=== PATIENT | male | born 1940 | race Two or more races ===

== ENCOUNTER 2018-06-22 18:29 | Emergency (ER) | payer MEDICARE ==
[~2018-06-22] VITALS: Ht 175.3 cm; Wt 86.2 kg
[2018-06-22] MEDS ORDERED: LIPITOR40 MG PO (19:06)
[2018-06-22] MEDS ORDERED: BLOOD PRESSURE (19:07)
[2018-06-22] MEDS ORDERED: PROVENTIL HFA6.7 GM INH (20:42)
[2018-06-22] MEDS ORDERED: ZITHROMAX250 MG PO (20:42)
== END 2018-06-22 20:50 | disposition home or self-care (01) ==
LOC: ED 18:29
DX: J20.9 Acute bronchitis, unspecified (principal); I10 Essential (primary) hypertension; E78.5 Hyperlipidemia, unspecified; Z87.891 Personal history of nicotine dependence; Z79.899 Other long term (current) drug therapy
CPT/HCPCS: 87502; 99283

== ENCOUNTER 2022-12-29 07:40 | Inpatient (IN) | payer MEDICARE ==
[~2022-12-29] VITALS: Ht 175.3 cm; Wt 94.0 kg
--- OUTSIDE RECORDS SUMMARY | ~2022-12-29 | XMS | Continuity of Care Document ---
Demographics + + + | Address | [address] | | | [place] [address] | + + + | Preferred Language | Unknown | + + + | Marital Status | | + + + | Jainism Affiliation | Unknown | + + + | Race | Unknown | + + + | Ethnic Group | Unknown | + + + Author + + + | Author | [place] | + + + | Organization | [place] | + + + | Address | [address] [facility] [address] | | | [place] [address] | + + + | Phone | | + + + Care Team Providers + + + + | Care Training And Development Officer Name | Role | Phone | + + + + Unavailable | Unavailable | + + + + Allergies and Intolerances + + + + + + | date | description | facility | reaction | severity | + + + + + + | (no date) | No Known | [facility] | (no reaction) | (no severity) | | | Allergies | | | | + + + + + + Encounters No information. Functional Status No information. Immunizations No information. Medications No information. Problems No information. Procedures No information. Results/Labs No information. Social History No information. Vital Signs No information."
[~2022-12-29 07:40] MED LIST: BLOOD PRESSURE; LIPITOR40 MG PO; PROVENTIL HFA6.7 GM INH; ZITHROMAX250 MG PO
[2022-12-29] MEDS ORDERED: LISINOPRIL-HCT1 EAC1 PO (07:59)
[2022-12-29] MEDS ORDERED: SIMVASTATIN40 MG PO (07:59)
[2022-12-29] MEDS ORDERED: FLUTICASONE PRO16 GM NAS (08:00)
[2022-12-29 08:07] LABS: HEMOGLOBIN 14.6 g/dL (12.0-18.0); MCHC 32.4 g/dl (30-36)
[2022-12-29 08:11] LABS: HEMATOCRIT 45.1 % (35.0-50.0); MCH 29.4 (27-36); MCV 90.9 fl (81-99); PLATELET COUNT 250 K/uL (140-440); RBC 4.97 M/ul (4.3-5.7); RDW 12.8 (10.5-15.0)
[2022-12-29 08:18] LABS: ALBUMIN 3.8 g/dL (3.4-5.0); ALBUMIN/GLOBULIN RATIO 0.97 (1.1-2.4); ANION GAP 14.6 (7-21); BILIRUBIN, TOTAL 1.2 ng/dL (0.2-1.0); BUN/CREATININE RATIO 21.76 (6.0-28.6); CALCIUM 10.1 mg/dL (8.5-10.1); CREATININE, SERUM 1.47 mg/dL (0.70-1.30); POTASSIUM 3.6 mmol/L (3.5-5.1); PROTEIN, TOTAL 7.7 g/dL (6.4-8.2)
[2022-12-29 08:28] LABS: LYMPHOCYTES, MANUAL DIFF 3; MONOCYTES, MANUAL DIFF 2; NEUTROPHILS, MANUAL DIFF 95
[2022-12-29 09:42] LABS: BILIRUBIN, URINE NEGATIVE (negative); BLOOD/HGB, URINE SMALL (Negative); KETONE, URINE NEGATIVE (Negative); LEUK ESTERASE, URINE NEGATIVE (negative); NITRITE, URINE NEGATIVE (negative); PH, URINE 5.5 (5-7)
[2022-12-29 09:47] LABS: BACTERIA, URINE NONE SEEN /hpf (negative); CASTS, URINE NONE SEEN \\lpf; COLLECTION TYPE, URINE CLEAN CATCH; CRYSTALS, URINE NONE SEEN (0-1+); EPITHELIAL CELLS, URINE 0 /lpf (0-1+); REFLEX CULTURE, URINE No (No); WHITE BLOOD CELLS, URINE 0-1 /HPF (0-5)
--- NOTE | 2022-12-29 11:31 | NUR ---
Patient has had surgical wipe down done.
[2022-12-29 11:44] VITALS: BP 153/85
--- NOTE | 2022-12-29 12:02 | NUR ---
PATIENT TAKEN DOWN TO SURGERY.
--- NOTE | 2022-12-29 12:13 | EKG ---
[facility] [address] [facility] [place] [address] Signed Sinus rhythm with premature supraventricular complexes Left anterior fascicular block Left ventricular hypertrophy with QRS widening ( R in aVL , Brennen product ) Abnormal ECG No previous ECGs available Confirmed by MILLI QUINTERO MD ([id number]) on 12/29/2022 12:13:34 PM Electronically Signed By: MILLI QUINTERO 12/29/22 1213 PATIENT NAME: NILSA REIDO Electrocardiogram DATE OF : 40 PHYSICIAN: MILLI QUINTERO REPORT #: [id number] REPORT IS CONFIDENTIAL AND NOT TO BE RELEASED WITHOUT AUTHORIZATION
[2022-12-29] MEDS ORDERED: DICLOFENAC POTA50 MG PO (12:16)
[2022-12-29] MEDS ORDERED: MULTI VITAMIN1 EACH PO (12:17)
[2022-12-29] MEDS ORDERED: ADULT LOW DOSE81 MG PO (12:17)
--- NOTE | 2022-12-29 12:17 | NUR ---
MED REC COMPLETE
--- NOTE | 2022-12-29 12:32 | NUR ---
OVER TO SEE PATIENT, PATIENT CURRENTLY IN OR.
--- NOTE | 2022-12-29 12:49 | CONS ---
[facility] [address] [place], [place] [address] Signed DATE OF CONSULTATION: 12/29/2022 CHIEF COMPLAINT: Right lower quadrant abdominal pain. HISTORY OF PRESENT ILLNESS: Donavan is an 82-year-old gentleman originally from [place]. 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 He woke this morning at around 4:00 a.m. and was having lower abdominal pain. He had nausea, chills, sweating and decided to come the emergency room for evaluation. He last ate yesterday around 8:00 p.m. Here in the emergency room, he is tender in the lower abdomen. White count was elevated. CT scan of abdomen and pelvis shows the 12 mm appendicolith with periappendiceal inflammation. He may have a 5 cm length of thickened mid right colon on the CT scan. It could be from contractions. He told me that his last colonoscopy came around age 72 back in 2012 or 2013 at [facility] in [place], [place]. Apparently, the bowel got perforated and he had to have a lower midline incision to repair the bowel. He spent about a week in the hospital. I was asked to come and see him as a local general surgeon on-call. His is with him. PAST MEDICAL HISTORY: Hypertension, hyperlipidemia, osteoarthritis, and obesity. PAST SURGICAL HISTORY: Repair of a colon perforation from colonoscopy around 2012 or 2013 at the age of 72 at [facility] in [place], [place]. SOCIAL HISTORY: He does not smoke or drink. He is to Hailey at [phone]. Sriram Parker is his primary care provider. He prefers the [facility] pharmacy. 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 FAMILY HISTORY: He has not seen his family since the 1960s when he left [place]. REVIEW OF SYSTEMS: He had 10 systems reviewed and he talked to me about the colon perforation and apparently has no history of colon polyps. He has declined colonoscopy since that time. ALLERGIES: None. MEDICATIONS: 1. Lisinopril 20 mg p.o. daily. Electronically Signed By: ALEX BRANDON MD 12/29/22 1249 PATIENT NAME: DONAVAN REID CONSULTATION DATE OF : 40 REPORT #: [id number] PHYSICIAN: ALEX BRANDON MD PCP: SRIRAM PARKER PAC REPORT IS CONFIDENTIAL AND NOT TO BE RELEASED WITHOUT AUTHORIZATION [facility] [address], [place] [address] Signed 2. Hydrochlorothiazide 25 mg p.o. daily. 3. Simvastatin 40 mg p.o. at bedtime. 4. Fluticasone one spray each nostril daily. PHYSICAL EXAMINATION: VITAL SIGNS: His blood pressure is 124/83, heart rate 107, respiratory rate 18, temperature is 97.1, he is 98% on room air. He is 5 feet 9 inches at 94 kg. Body mass index is 30. GENERAL: Donavan is an 82-year-old gentleman, lying supine in his hospital bed, watching TV. His is in the room. He has good muscle mass and overall seems to have good functional status. He does not appear systemically ill or toxic. LUNGS: Clear to auscultation bilaterally. HEART: Regular rate and rhythm without murmurs. ABDOMEN: Moderately to significantly protuberant, but soft. He seems to have some mild tenderness deep in the right lower quadrant. LABORATORY DATA: His white blood cell count is 16, hemoglobin 14, neutrophils 95. BUN 32, creatinine 1.4. Liver function tests negative. Albumin is 3.8. EKG shows normal sinus rhythm. RADIOGRAPHIC STUDIES: CT scan of abdomen and pelvis is reviewed along with the report and the images. There appears to be a 12 mm appendicolith and some periappendiceal inflammation. He may have a 5 cm segment of slightly thickened mid right colon. ASSESSMENT AND PLAN: Donavan is an 82-year-old gentleman, who presents with what appears to be classic acute appendicitis. I reviewed with him the location and function of the appendix. We reviewed the above findings. We have reviewed laparoscopic versus open appendectomy. We have discussed the expected intraop and postop course. There is risk including, but not limited to bleeding, infection, scarring, change in contour of the skin, damage to bowel, appendiceal stump leak, postoperative intra-abdominal abscess incisional hernias and other unforeseen comorbidities. He and his have expressed understanding and would like to proceed. Alex Brandon MD ALB/MODL /[id number] Electronically Signed By: ALEX BRANDON MD 12/29/22 1249 PATIENT NAME: DONAVAN REID CONSULTATION DATE OF : 40 REPORT #: [id number] PHYSICIAN: ALEX BRANDON MD PCP: SRIRAM PARKER REPORT IS CONFIDENTIAL AND NOT TO BE RELEASED WITHOUT AUTHORIZATION [facility] [address] [place], [place] [address] Signed cc: KENDRA Avalos MD Copies: SRIRAM PARKER ANDREW L MD ~ Electronically Signed By: ALEX BRANDON MD 12/29/22 1249 PATIENT NAME: DONAVAN REID CONSULTATION DATE OF : 40 REPORT #: [id number] PHYSICIAN: ALEX BRANDON MD PCP: SRIRAM PARKER REPORT IS CONFIDENTIAL AND NOT TO BE RELEASED WITHOUT AUTHORIZATION
--- NOTE | 2022-12-29 13:00 | NUR ---
RECIEVED HAND OFF REPORT FROM JHONY FLORES. PT REMAINS IN SURGERY AT THIS TIME.
[2022-12-29 16:22] VITALS: BP 123/79
--- NOTE | 2022-12-29 16:25 | NUR ---
12/29/22 1625 Keira Thomson 1535- PT ARRIVED TO PACU, SEMI CAVANAUGH POSITION WITH LR INFUSING TO IV LAC. O2 AT 6L PER MASK, ALL MONITORS APPLIED. PT EYES OPEN BUT DROWSY, RESPONSIVE TO STIMULI. DENIES PAIN OR NAUSEA. 1539- O2 REMOVED AT THIS TIME, WILL CONTINUE TO MONITOR. 1545- PT RESTING INTERMITTENTLY. CONTINUES TO HAVE NO COMPLAINTS. 1600- PT REMAINS STABLE ON ROOM AIR, VITAL SIGNS WITHIN NORMAL LIMITS. NO SIGNS OF DISTRESS. PT TO GO TO MED/SURG. LR HANGING.
--- NOTE | 2022-12-29 16:30 | NUR ---
PATIENT RETURNS FROM PACU AT 1615. POST OP VITALS COMPLETE. PT IS ALERT, ORIENTED, AND IN GOOD SPIRITS. PT DENES PAIN AT THIS TIME. ABDOMINAL INCISION MIDLINE IS C/D/I W/O ANY DRAINAGE NOTED AT THIS TIME. LAP SIDE RIGHT SIDE OF ABD ALSO C/D/I. SCDs ON. IVF STARTED AT 100 ML/HR. PT'S AND DAUGHTER IN ROOM. RT IN ROOM AND CONT PULSE OX STARTED. PT USING IS. NEXT POST OP VITALS AT 1715.
--- NOTE | 2022-12-29 16:49 | OR ---
[facility] [address] [place], [place] [address] Signed DATE OF OPERATION: 12/29/2022 SURGEON: Alex Brandon MD PREOPERATIVE DIAGNOSIS: Acute appendicitis. POSTOPERATIVE DIAGNOSIS: Acute necrotic appendicitis. PROCEDURE: Laparoscopic converted to open appendectomy. ESTIMATED BLOOD LOSS: None. FINDINGS: Cuco had adhesions of the cecum and mid right colon from a previous laparotomy. His appendix was lying on the retroperitoneum over the area of the iliac artery and vein near the aorta. He had acute on chronic inflammation and chronic adhesions. The distal one-half of his appendix was black and necrotic. We therefore had to convert from a laparoscopic to an open appendectomy for technical reasons and for safety. INDICATIONS: Cuco is an 82-year-old gentleman originally from [place]. He came to the [facility] in the 1960s. 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 He woke this morning at 4:00 a.m. and he was having lower abdominal pain. He had nausea, chills and was sweating. He came to the emergency room for evaluation. He was tender in the lower abdomen with an elevated white blood cell count. A CT scan showed his appendix traveling transversely across the area of iliac artery and vein just below the bifurcation of the aorta. He appears to have an appendicolith. There was also some concern about a 5 cm segment of thickened mid right colon. He told me that he had a colonoscopy at age 72 at [facility] in [place], [place]. He told me the bowel had been perforated and he had to have a laparotomy to repair the bowel. He has been about a week in the hospital. I met with Cuco and his in the ER. We had reviewed the above findings. I reviewed with him the location and function of the appendix. We discussed laparoscopic versus open appendectomy. I expressed my concern about the location of his appendix on the CT scan. He understands we have a 3% conversion rate from laparoscopic to open cases. He understands the expected intraop and postop course. We did review the risk including, but not limited to bleeding, infection, scarring, change in contour of the Electronically Signed By: ALEX BRANDON MD 12/29/22 1649 PATIENT NAME: ODNAVAN REID OPERATIVE REPORT DATE OF : 40 REPORT #: [id number] PHYSICIAN: ALEX BRANDON MD PCP: RADHA PARKER PAC REPORT IS CONFIDENTIAL AND NOT TO BE RELEASED WITHOUT AUTHORIZATION [facility] [address] [place] [address] Signed skin, damage to bowel, appendiceal stump leak, postoperative intra-abdominal abscess, incisional hernias and other unforeseen comorbidities. He had expressed understanding and wished to proceed. DESCRIPTION OF PROCEDURE: Cuco was taken into the operating room and placed in the supine position under general endotracheal tube anesthesia. He was given preoperative antibiotics with Rocephin and Flagyl. He was given preoperative Lovenox. SCDs were utilized. A Avila catheter was inserted with return of clear yellow urine. He was then prepped and draped in usual sterile fashion. We placed our Halle trocar just above the umbilicus without difficulty. We placed our suprapubic 5 mm trocar as well as the right subcostal 12 mm trocar at the trocar site. We found that his cecum was adherent in the retroperitoneum. We took down some adhesions on the cecum up through the mid right colon. We realized that as we rotated the cecum that his appendix was also densely adherent to the retroperitoneum. There were several loops of small bowel adherent to this as well. We simply could not proceed safely with our laparoscopic instruments. At that point, we converted to an open procedure. All the gas was allowed to escape and the trocars were removed. We had closed the right subcostal trocar site with an 0 Vicryl suture with our laparoscopic suturing device. We simply extended our supraumbilical incision down and around the umbilicus to follow his old laparotomy scar. There were just a few adhesions underneath the umbilicus easily taken down with the cautery. We had an extra nurse scrub in to help hold retractors. It took just a few minutes then to isolate the cecum and his appendix. He had a tiny 3 mm serosal area on the cecum that we inverted and oversewed with a 3-0 Vicryl suture in a nevqjf-qg-vgfoe fashion. We had divided off the base of the appendix with the cautery in between Peon clamps, it was divided and secured with 0 Vicryl reel. The appendiceal stump was gently cauterized. It took just a little cautery under direct visualization to bring the appendix up off the retroperitoneum. We used a single clip near the tip of the appendix. After that, we had enough room then to come across the mesoappendix with Peon camp right next to his appendix. The appendix was with the help of the Metzenbaum scissors and passed off the field. The proximal half was unremarkable. The distal half was quite swollen, black and necrotic. No obvious abscess cavity. He certainly had chronic adhesions from his previous laparotomy in this area. He also had some acute inflammatory changes. We then used an 0 Vicryl reel to secure the mesoappendix. Hemostasis was excellent. The area was then irrigated and suctioned out until clear. There was no abscess cavity, so we did not place a drain. We allowed the cecum and small bowel to return to its position. The omentum was brought back down over the area. We closed the midline fascia with interrupted cheowk-nv-fctvb #1 PDS sutures. Local anesthetic was injected into his abdominal wall. The wound was irrigated and suctioned out until clear. We closed the dermis with interrupted 3-0 subcuticular and Monocryl sutures. The skin edges were reapproximated with harlan. After this, Electronically Signed By: ALEX BRANDON MD 12/29/22 1649 PATIENT NAME: DONAVAN REID OPERATIVE REPORT DATE OF : 40 REPORT #: [id number] PHYSICIAN: ALEX BRANDON MD PCP: RADHA PARKER REPORT IS CONFIDENTIAL AND NOT TO BE RELEASED WITHOUT AUTHORIZATION [address] [address] Signed bilateral TAP blocks were placed under ultrasound guidance by our nurse train examiner. A Avila catheter was then removed without difficulty. Cuco was awakened from his anesthesia, extubated in the OR, and taken to recovery room in stable condition. MD MANJEET Marr/MATT /[id number] cc: MD Radha Marr PA-C Copies: ALEX BRANDON MD, ERIKA PAC ~ Electronically Signed By: ALEX BRANDON MD 12/29/22 1649 PATIENT NAME: DONAVAN REID OPERATIVE REPORT DATE OF : 40 REPORT #: [id number] PHYSICIAN: ALEX BRANDON MD PCP: RADHA PARKER PAC REPORT IS CONFIDENTIAL AND NOT TO BE RELEASED WITHOUT AUTHORIZATION
[2022-12-29 17:18] VITALS: BP 154/79
--- NOTE | 2022-12-29 17:20 | NUR ---
Spoke with pt and his Hailey. [place] near [place]. Adult children live their also and assist them. 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 He does not have issues getting in or out of the home. He has a cane. Pt drives. They deny any needs. will complete report specialist, cooking, and shopping. They deny financial issues. Plan on dc to home when cleared medically. Per Dr. Hernandez, pt will dc in a few days as appy was open.
[2022-12-29 18:21] VITALS: BP 146/80
--- NOTE | 2022-12-29 18:32 | NUR ---
PATIENT BLADDER SCANNED AND FOUND TO ONLY HAVE 51 ML IN BLADDER. PT HAD BEEN VOIDING SMALL AMOUNTS AT A TIME. DRESSING HAD SOME BLOODY DRAINAGE TO THE BOTTOM OF IT, MIDLINE ABDOMEN, AND THIS WAS CHANGED WITH NEW GAUZE AND TAPE. PT DENIES FURTHER NEEDS.
[2022-12-29 19:08] VITALS: BP 166/72
--- NOTE | 2022-12-29 20:29 | NUR ---
PATIENT IS PLEASANT, AT BEDSIDE, DENIES DISCOMFORT, ABD DRSGING INTACT WITH SMALL AMT SEROSANG DRAINAGE AT LOWER PART OF GAUZE DRESSING. HYPOACTIVE BT'S, DENIES NAUSEA, CALL LIGHT WITHIN REACH, WATCHING TV. REPORT GIVEN BY DAY SHIFT RN.
[2022-12-29 22:20] VITALS: BP 144/76
[2022-12-30] VITALS (8 sets, daily range): BP systolic 121–198; BP diastolic 65–108
--- NOTE | 2022-12-30 00:16 | NUR ---
Patient appears asleep, appears comfortable, IV infusing @ 100/h. Patient's son is sleeping in room. Continous oxy monitoring and sats have remained >92%. call light in reach, lights are out. no distress noted.
--- NOTE | 2022-12-30 04:04 | NUR ---
Patient appears a sleep, appears comfortable, VSS, assessment without change, son sleeping at bedside, call light in reach.
[2022-12-30 05:31] LABS: BASOPHILS 0.1 % (0-2); HEMATOCRIT 37.7 % (35.0-50.0); HEMOGLOBIN 12.3 g/dL (12.0-18.0); LYMPHOCYTES 3.9 % (24-44); MCH 29.4 (27-36); MCHC 32.5 g/dl (30-36); MCV 90.5 fl (81-99); MONOCYTES 2.4 % (0-12); NEUTROPHILS 93.6 % (39-80); PLATELET COUNT 202 K/uL (140-440); RBC 4.17 M/ul (4.3-5.7); RDW 13.6 (10.5-15.0)
[2022-12-30 05:57] LABS: ANION GAP 15.1 (7-21); BUN/CREATININE RATIO 20.17 (6.0-28.6); CALCIUM 8.8 mg/dL (8.5-10.1); CREATININE, SERUM 1.14 mg/dL (0.70-1.30); MAGNESIUM 1.5 mg/dL (1.8-2.4); PHOSPHORUS, INORGANIC 3.4 mg/dL (2.5-4.9); POTASSIUM 4.1 mmol/L (3.5-5.1)
--- NOTE | 2022-12-30 06:10 | NUR ---
MD in to see patient, gauze dressing to midline abdomine removed. incision intact with harlan and now open to air per MD. patient stil with minimal discomfort, call light in reach.
--- NOTE | 2022-12-30 07:25 | NUR ---
BEDSIDE HANDOFF REPORT RECEIVED FROM WINDING MACHINE OPERATOR RN. PT RESTING IN BED, AT BEDSIDE. PT DENIES PAIN AT REST. PT DENIES NEEDS AT THIS TIME.
--- NOTE | 2022-12-30 08:45 | NUR ---
PT RESTING IN BED. PT ONB ROOM AIR, LUNG SOUNDS CLEAR, DENIES SOB. PT DENIES NAUSEA, BOWEL TONES ACTIVE, FULL LIQUID BREAKFAST AT BEDSIDE. CMS INTACT, WITHOUT EDEMA, SCDS IN PLACE. MIDLINE INCISION WITH NEWTON, OPEN TO AIR, EDGES WELL APPROXIMATED, WITHOUT DRAINAGE. PT VOIDING WITHOUT DIFFICULTY. IV FLAGYL INFUSION STARTED. AT BEDSIDE, PT DENIES OTHER NEEDS AT THIS TIME.
--- NOTE | 2022-12-30 10:54 | NUR ---
PT ASSISTED TO WALK IN SILVA, NOW SITTING IN CHAIR. BED LINENS CHANGED. PT DENIES OTHER NEEDS AT THIS TIME.
--- NOTE | 2022-12-30 11:00 | NUR ---
PT SITTING IN CHAIR. ON COUCH. IN OVERALL GOOD SPIRITS. I EXERCISED MINISTRY OF PRESENCE PT TALKED OF LIFE EXPERIENCES AND RECENT ILLNESS. PT CONSENTED TO PRAYER. PRAYED FOR HEALING AND ONGOING BLESSING.
--- NOTE | 2022-12-30 17:30 | NUR ---
PT HYPERTENSIVE, BP 177/88, VS OTHERWISE STABLE. PT STATES PAIN IS TOLERABLE AT REST BUT RATES PAIN 6/10, GIVEN 1 TAB NORCO. WILL REASSESS PAIN IN 1 HOUR. PT DENIES OTHER NEEDS AT THIS TIME.
--- NOTE | 2022-12-30 18:23 | NUR ---
PT CONTINUES TO BE HYPERTENIVE. CALL PLACED TO DR. BRANDON, TELEPHONE ORDER TO DECREASE IV FLUIDS TO 50 ML/HR AND TO GIVEN 25MG PO HCTZ, RBOV.
--- NOTE | 2022-12-30 20:26 | NUR ---
Patient resting in bed watching TV, denies discomfort, no nausea, Abdomine rounded, hypoactive BT's, incision intact with harlan, call light in reach, report given by saima RN.
--- NOTE | 2022-12-30 21:45 | NUR ---
Assisted Pt SBA FWW with getting out of bed to ambulate up and down hallway and back to bed. Pt has no complaints of pain, and no other needs. Call light left in reach.
--- NOTE | 2022-12-30 22:49 | NUR ---
PATIENTS BP STILL ELEVATED 189/108 LYING AND 179/89 STANDING. CALLED MD AND ORDER GIVEN TO CHANGE BP MEDICATION FROM PO TO IV.
[2022-12-31] VITALS (9 sets, daily range): BP systolic 125–209; BP diastolic 78–118
--- NOTE | 2022-12-31 00:18 | NUR ---
PATIENT SLEEPING WITH EYES CLOSED, APPEARS COMFORTABLE, CALL LIGHT IN REACH.
--- NOTE | 2022-12-31 04:02 | NUR ---
PATIENT APPEARS ALSEEP, APPEARS COMFORTABLE, BP COMING DOWN AFTER VASTEC GIVEN. WHILE TALKING WITH PATIENT EARLIER HE MENTIONED THAT PRIOR TO COMING IN TO THE HOSITAL HE HAD NOT TAKEN HIS 3 BP MEDICATIONS FOR 3 DAYS BECAUSE HIS DAUGHTER DID NOT GET IT FILLED IN TIME, HE STATED "THAT WILL NEVERS HAPPEN AGAIN".
--- NOTE | 2022-12-31 05:35 | NUR ---
Patient has slept well through the night. Abdominal assessment without change, intact with harlan, hypoactive BT's, no flatus, denies nausea, medicated during the night with pain med., BP elevated and MD notified and patient given Vasotec IV and BP coming down. see earlier note regarding missed BP's meds. x 3 days. Ambulated in the avila prior to bedtime and tolerated well.
--- NOTE | 2022-12-31 07:35 | NUR ---
received report from night rn, all questions answered. Pt resting in bed with eyes closed, respirations even and unlabored. Call light in reach and bed alarm on.
--- NOTE | 2022-12-31 08:49 | NUR ---
MORNING ASSESSMENT COMPLETE. PT AWAKE IN BED, STATES FEELING ANXIOUS REGARDING BLOOD PRESSURE, PROVIDED EDUCATION REGARDING MEDICATIONS AND BLOOD PRESSURE READINGS, PT VERBALIZED UNDERSTANDING. PT C/0 5/10 ABD PAIN, GIVEN PRN PAIN MEDICATION, SEE EMAR. HYPOACTIVE BOWEL TONES. MIDLINE INCISION CDI, NEWTON INTACT. MODERATELY DISTENDED ABD. PT ASSISTED TO RESTROOM AND BACK TO BED. DR BRANDON IN ROOM. PT DENIES FURTHER NEEDS AT THIS TIME. BREAKFAST AT BEDSIDE, CALL LIGHT WITHIN REACH AND BED ALARM ON.
--- NOTE | 2022-12-31 13:21 | NUR ---
PT SITTING UP IN BED FINISHING LUNCH. FAMILY IN ROOM. PT REPORTS DECREASE IN PAIN LEVEL AND FEELS "LESS TIGHT" IN ABDOMEN. PT STILL SLIGHTLY HYPERTENSIVE. OTHER VSS. PT DENIES BEING ABLE TO PASS GAS AND HAS STILL NOT HAD A BOWEL MOVEMENT. LUNCH TRAY CLEARED. CALL LIGHT WITHIN REACH.
--- NOTE | 2022-12-31 13:47 | NUR ---
PT USES CALL LIGHT IN BATHROOM. PT ABLE TO PASS GAS AND REPORTS A "HARD" BOWEL MOVEMENT. PT REPORTS SIGNIFICANT DECREASE IN PRESSURE IN ABD. PT BACK TO BED WITH STANDBY ASSIST WITH FWW. CALL LIGHT WITHIN REACH
--- NOTE | 2022-12-31 17:51 | NUR ---
HOURLY ROUNDING COMPLETE. VSS. PT SITTING UP IN BED WITH DINNER TRAY. PT DENIES PAIN/NAUSEA AND REPORTS HIS ABD FEELS "BETTER". PT DENIES OTHER NEEDS AT THIS TIME. CALL LIGHT WITHIN REACH
--- NOTE | 2022-12-31 19:29 | NUR ---
RECEIVED REPORT FROM DAY SHIFT RN. PATIENT IS RESTING IN BED WATCHING TV. PATIENT DENIES ANY NEEDS. CALL LIGHT IN REACH.
--- NOTE | 2022-12-31 20:20 | NUR ---
PATIENTS VITALS TAKEN AND RECORDED. INTAKE AND OUTPUT RECORDED. PATIENTS PM MEDS GIVEN PER ORDER. IV INFUSING PER ORDER. PATIENT DENIES ANY PAIN. PATIENT PROVIDED WITH FRESH ICE WATER. PATIENT ASSESMENT COMPLETED. PATIENTS MID ABD HAS NOTED SURGICAL SITE THAT IS WELL APPROXIMATED, OPEN TO AIR, MILD REDNESS NOTED AROUND SURGICAL SITE. PATIENTS SON AT BEDSIDE. PATIENT AND PATIENTS SON DENY ANY NEEDS. CALL LIGHT IN REAC.H
--- NOTE | 2022-12-31 22:19 | NUR ---
PATIENT IS RESTING IN BED. PATIENTS BP REPEATED AND IS WNL. PATIENT DENIES ANY PAIN. URINAL EMPTIED. PATIENT DENIES ANY NEEDS. CALL LIGHT IN REACH.
[2023-01-01] VITALS (8 sets, daily range): BP systolic 96–158; BP diastolic 71–99
--- NOTE | 2023-01-01 00:02 | NUR ---
PATIENT IS RESTING IN BED WITH EYES CLOSED, RR 16. CALL LIGHT IN REACH. SON ASLEEP ON COUCH.
--- NOTE | 2023-01-01 02:12 | NUR ---
PATIENTS VITALS TAKEN AND RECORDED. SCHEDULED MEDS GIVEN PER ORDER. PATIENT DENIES ANY PAIN. PATIENTS URINAL EMPTIED. PATIENTS IV INFUSING PER ORDER. PATIENT DENIES ANY FURTHER NEEDS. CALL LIGHT IN REACH. SON ASLEEP ON THE COUCH.
--- NOTE | 2023-01-01 04:15 | NUR ---
PATIENT IS RESTING IN BED WITH EYES CLOSED, RR 15. CALL LIGHT IN REACH.
--- NOTE | 2023-01-01 05:18 | NUR ---
PATIENT IS RESTING IN BED. VITALS TAKEN AND RECORDED. URINAL EMPTIED. IV INFUSING PER ORDER. INTAKE AND OUTPUT RECORDED. PATIENT DENIES ANY PAIN OR NUASEA.
--- NOTE | 2023-01-01 06:18 | NUR ---
PATIENT IS RESTING IN BED WITH EYES CLSOED, RR 15. CALL LIGHT IN REACH. IV INFUSING PER ORDER. SCDS IN USE. SON ASLEEP ON COUCH.
--- NOTE | 2023-01-01 07:12 | NUR ---
REPORT RECEIVED FROM NIGHT RN ALL QUESTIONS ANSWERED. PT RESTING IN BED WITH EYES CLOSED, RESPIRATIONS EVEN AND UNLABORED.
--- NOTE | 2023-01-01 09:15 | NUR ---
MORNING ASSESSMENT COMPLETE. PLAN OF CARE DISCUSSED WITH PATIENT AND FAMILY. PT REPOSITIONED IN BED. MEDICATIONS GIVEN. PT ABD MILDLY DISTENDED, ACTIVE BOWEL TONES, INCISION PSS DELIVERY PROFESSIONAL AND CDI, NEWTON INTACT. SLIGHT PINKNESS NOTED AROUND INCISION, WILL CONTINUE TO MONITOR. PT C/O 5/10 ABD PAIN, PAIN MEDICATIONS GIVEN, SEE EMAR. PT BREAKFAST DELIVERED, DENIES FURTHER NEEDS AT THIS TIME. CALL LIGHT IN REACH, FAMILY AT BEDSIDE.
--- NOTE | 2023-01-01 11:44 | NUR ---
PT UP AMBULATING UNIT HALLWAY X1 WITH 1 PERSON ASSISTED AND FWW. PT TOLERATED WELL. LINEN CHANGE AND PT UP TO RECLINER. PT DENIES FURTHER NEEDS AT THIS TIME. CALL LIGHT IN REACH. FAMILY AT BEDSIDE.
--- NOTE | 2023-01-01 14:09 | NUR ---
BP 96/71, MAP 78, HR 81. PT ASYMPTOMATIC. DR QUINTERO INFORMED OF VITAL SIGNS. VERBAL ORDER TO DC CLONIDINE PATCH AND VASOTEC. CLONIDINE PATCH REMOVED. PT DENIES NEEDS AT THIS TIME. CALL LIGHT IN REACH. FAMILY AT BEDSIDE.
--- NOTE | 2023-01-01 14:17 | NUR ---
PT AMBULATES UNIT HALLWAY WITH SANTO BOOKER
--- NOTE | 2023-01-01 19:44 | NUR ---
REPORT RECEIVED FROM DAY SHIFT RN. PT LYING IN BED ALERT AND ORIENTED. DENIES NEEDS. WHITE BOARD UPDATED. CALL LIGHT IN REACH.
--- NOTE | 2023-01-01 22:52 | NUR ---
EVENING ASSESSMENT COMPLETE. PRN FOR ABD PAIN ADMIN PER EMAR. PT DENIES NAUSEA. REPORTS "FEELING BLOATED." ABD FIRM AND DISTENDED. BOWEL TONES ACTIVE. REPORTS FLATUS. MIDLINE ABD INCISION WITH NEWTON IN PLACE. NO DRAINAGE NOTED. REDNESS NOTED AT DISTAL END OF INCISION. REDNESS REMAINS WITHIN OUTLINE. IV IN LEFT AC INFILTRATED. IV DC'D WNL. TIP INTACT. NEW IV STARTED IN RIGHT FOREARM. PT SIMONE WELL. IVF INFUSING WNL. PT AMB X 1 LAP AROUND NURSING UNIT WITH FWW AND SBA. SIMONE WELL. SCD'S IN PLACE. PT DENIES QUESTIONS OR CONCERNS. CALL LIGHT IN REACH.
--- NOTE | 2023-01-02 01:46 | NUR ---
PT RESTING IN BED WITH EYES CLOSED. RESPIRATIONS EVEN. CALL LIGHT IN REACH.
--- NOTE | 2023-01-02 04:12 | NUR ---
PT RESTING IN BED WITH EYES CLOSED. HOB ELEVATED. RESPIRATIONS EVEN. NO APPARENT DISTRESS. CALL LIGHT IN REACH.
[2023-01-02 05:51] VITALS: BP 152/93
--- NOTE | 2023-01-02 06:10 | NUR ---
PT RESTING WITH EYES CLOSED. AWAKENS EASILY. VS AND I&O OBTAINED. PT DENIES PAIN OR NAUSEA. ABD FIRM AND DISTENDED. BOWEL TONES ACTIVE. PT REPORTS FLATUS. MIDLINE INCISION WITH NEWTON INTACT. NO DRAINAGE NOTED. INCREASED BRUISING AROUND INCISION SITE NOTED. 2PA TO REPOSITION IN BED. PT DENIES NEEDS. CALL LIGHT IN REACH.
--- NOTE | 2023-01-02 08:20 | NUR ---
PT UP TO THE BATHROOM INDEPENDANT WITH FWW. PERSONAL CARE ITEMS PROVIDED. PT SHAVING AND DOING A.M. CARES. TO THE RECLINER FOR MORNING MEAL. FRESH H20 AND CALL LIGHT IN REACH. PT DENIES ABDOMINAL PAIN OR FURTHER NEEDS
--- NOTE | 2023-01-02 09:28 | NUR ---
PT TOLERATES BREAKFAST WITH NO C/O DISCOMFORT OR NAUSEA. AMBULATES THE SILVA A FULL LAP SBA WITH FWW, WELL TOLERATED. RETURNS TO SITTING UP IN THE RECLINER USES I.S. APPROPRIATELY WITHOUT PROMPTING
[2023-01-02 09:52] VITALS: BP 174/95
--- NOTE | 2023-01-02 09:56 | NUR ---
AT ABOUT 0715 HOURS, PT REPORT RECEIVED FROM JHONY NEELY
--- NOTE | 2023-01-02 10:40 | NUR ---
PT UP IN CHAIR, BLE ELEVATED, BEDSIDE TABLE AND CALL LIGHT NEAR. PT USING INCENTIVE SPIROMETER
--- NOTE | 2023-01-02 11:00 | NUR ---
PATIENT IS SITTING IN THE CHAIR SLEEPING. PATIENT'S DISCHARGE PLAN IS THE PATIENT WILL STAY ANOTHER DAY PER MD. PATIENT PLANS TO GO HOME WITH HIS .
--- NOTE | 2023-01-02 11:26 | NUR ---
PT REQUESTS TO USE BATHROOM. 1-PERSON SBA WITH FWW TO BATHROOM FOR UNMEASURED VOID. PT TOLERATED WELL. BACK TO CHAIR, BLE ELEVATED, SCD'S ON. CALL LIGHT IN REACH
--- NOTE | 2023-01-02 11:51 | NUR ---
PT AMBULATES FULL LAP IN THE SILVA DENIES PAIN, WELL TOLERATED. RETURNS TO SITTING UP IN THE RECLINER, HAS NEWSPAPER TO READ AND CALL LIGHT IN REACH. SCD'S IN PLACE
[2023-01-02 14:19] VITALS: BP 135/83
--- NOTE | 2023-01-02 16:43 | NUR ---
pt ambulates full lap around the avila well tolerated. returns to sitting up in the recliner
[2023-01-02 18:39] VITALS: BP 125/67
--- NOTE | 2023-01-02 19:43 | NUR ---
REPORT RECEIVED FROM DAY SHIFT RN. PT SITTING IN RECLINER ALERT AND ORIENTED. DENIES NEEDS. WHITE BOARD UPDATED. CALL LIGHT IN REACH. SON VISITING IN ROOM.
[2023-01-02 20:58] VITALS: BP 130/75
--- NOTE | 2023-01-02 21:41 | NUR ---
EVENING ASSESSMENT COMPLETE. PT DENIES PAIN OR NAUSEA. UP TO AMB X 1 LAP AROUND NURSING UNIT WITH FWW AND SBA. GAIT STEADY. TO BR TO VOID AND DO PM CARES INDEPENDENTLY. BACK TO BED, SIMONE WELL. SCD'S IN PLACE. ABD DISTENDED. BOWEL TONES ACTIVE. PT REPORTS FLATUS. MIDLINE INCISION WITH NEWTON INTACT. NO REDNESS OR DRAINAGE. BRUISING NOTED AROUND INCISION. PT DENIES QUESTIONS OR CONCERNS. CALL LIGHT IN REACH. BED ALARM FOR SAFETY.
--- NOTE | 2023-01-02 23:34 | NUR ---
PT RESTING IN BED WITH EYES CLOSED. RESPIRATIONS EVEN. BED ALARM ON. CALL LIGHT IN REACH.
--- NOTE | 2023-01-03 02:26 | NUR ---
URINAL EMPTIED. SpO2 97% ON RA. HR 70'S. PT REPORTS HE IS RESTING WELL. DENIES NEEDS.
--- NOTE | 2023-01-03 04:08 | NUR ---
PT RESTING IN BED WITH EYES CLOSED. RESPIRATIONS EVEN. BED ALARM FOR SAFETY. CALL LIGHT IN REACH.
[2023-01-03 06:22] VITALS: BP 146/95
--- NOTE | 2023-01-03 06:33 | NUR ---
PT RESTING WITH EYES CLOSED. AWAKENS EASILY. VS AND I&O OBTAINED. PO ABX ADMIN PER EMAR. 2PA TO REPOSITION IN BED. SCD'S IN PLACE. FAMILY IN ROOM. PT DENIES PAIN OR NAUSEA. ABD SOFT AND DISTENDED. BOWEL TONES ACTIVE. PT REPORTS FLATUS. MIDLINE INCISION WITH NEWTON INTACT. NO REDNESS OR DRAINAGE NOTED. NO FURTHER NEEDS. CALL LIGHT IN REACH.
--- NOTE | 2023-01-03 07:07 | NUR ---
Verbal bedside report received from JHONY Aguiar.
--- NOTE | 2023-01-03 07:20 | NUR ---
RECIEVED SHIFT REPORT. PT AWAKE IN BED, FAMILY AT BEDSIDE. CALL LIGHT IN REACH.
--- NOTE | 2023-01-03 07:59 | NUR ---
PT RESTING IN BED, VISITORS X2 IN ROOM. PT WATCHED TV, AWAKE AND ALERT. NO REQUESTS AT THIS TIME.
[2023-01-03] MEDS ORDERED: NORVASC5 MG PO (08:42)
[2023-01-03 10:24] VITALS: BP 117/74
--- NOTE | 2023-01-03 10:30 | NUR ---
DISCUSSED DISCHARGE INSTRUCTIONS WITH PT, SPOUSE AND SON IN ROOM. ALL, VERBALIZED UNDERSTANDING. WRITTEN INSTRUCTIONS PROVIDED. IV REMOVED BY JHONY VAZQUEZ. VSS. PT ASSISTED UP IN BED. SPOUSE ASSIST PT TO DRESS.
--- NOTE | 2023-01-03 10:50 | NUR ---
PT DRESSED, LEAVES UNIT WITH SPOUSE AND SON.
--- NOTE | 2023-01-03 11:57 | PATH ---
[facility] [address] [facility] [place], [place] [address] Signed SPECIMEN(S): A APPENDIX SPECIMEN SOURCE: A. APPENDIX CLINICAL HISTORY: Appendicitis with fecalith (12 mm stone). FINAL PATHOLOGIC DIAGNOSIS: Appendix, appendectomy: - Acute suppurative appendicitis, periappendicitis and serositis. - Focal mucosal necrosis. JVR:[facility] MICROSCOPIC EXAMINATION: Histologic sections of all submitted blocks are examined by light microscopy. These findings, together with the gross examination, support the pathologic diagnosis. GROSS DESCRIPTION: The specimen, labeled and designated "Aristequi, Y, " and designated on the requisition "appendix," is received in formalin and consists of: Specimen: Appendix with mesoappendix. Dimensions: 10.2 in length and ranges from 0.7 to 1.4 cm in diameter. Serosa: Dusky pink with areas of nunez-white exudate. Defect: Not grossly identified. Inking: Staple line is inked Blue. Mucosa: Red-black and softened. Fecalith: Not grossly identified. Additional: None. Morning Caregiver sections are submitted in (A1). FB (under the direct supervision of a pathologist) The Gross Description was prepared using a voice recognition system. The report was reviewed for accuracy; however, sound-alike word errors, addition and/or deletions may occur. If there is any question about this report, please contact Client Services. PERFORMING LABORATORY: Technical component was performed by [facility], [address] [place] [id number] (CLIA# [id number]). Professional interpretation was performed by [facility] - [place], PATIENT NAME: DONAVAN REID PATHOLOGY DATE OF : 40 REPORT #: [id number] PHYSICIAN: ANTONIO PATHOLOGY PCP: SRIRAM PARKER PAC REPORT IS CONFIDENTIAL AND NOT TO BE RELEASED WITHOUT AUTHORIZATION [facility] [address] [place], [place] [address] [place] [address], [place] [address] (CLIA#: [id number]). Diagnostician: Sathish Soria MD Pathologist Electronically Signed 01/03/2023 Copies: ~ PATIENT NAME: DONAVAN REID PATHOLOGY DATE OF : 40 REPORT #: [id number] PHYSICIAN: ANTONIO PATHOLOGY PCP: SRIRAM PARKER PAC REPORT IS CONFIDENTIAL AND NOT TO BE RELEASED WITHOUT AUTHORIZATION
--- NOTE | 2023-01-04 07:21 | DS ---
[facility] [address] [place], [place] [address] Signed ADMISSION DATE: 12/29/2022 DISCHARGE DATE: 01/03/2023 FINAL DIAGNOSIS: Acute necrotic appendicitis. PROCEDURES: 1. Laparoscopic converted to open appendectomy. 2. CT scan of abdomen and pelvis. HISTORY: Cuco is an 82-year-old gentleman from [place], who came over in the 1960s work on the [employer]. 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 He developed lower abdominal pain with nausea, chills, and sweating. He decided to come into the emergency room for evaluation. He was tender in the lower abdomen that more so on the right side. His white count was elevated. CT scan showed the inflamed appendix with a 12 mm appendicolith. There was also a question of a 5 cm segment of thickened mid right colon. However, at the time of surgery I could not see or feel this area at the mid right colon, and instead there were adhesions in the mid right colon down to the cecum from the previous laparotomy for a perforated colon, following a colonoscopy about 10 years ago. HOSPITAL COURSE: He was admitted as above. He was hydrated given antibiotics and taken to the operating room. He underwent a laparoscopic converted to open appendectomy, it took 1 hour and 20 minutes. We had to take down adhesions of the cecum and mid right colon. His appendix was all the way in the retroperitoneum over the area of the iliac artery and vein just below the bifurcation of the aorta. He had acute inflammatory changes, but he had chronic adhesions from his prior abdominal surgery; however, the intra and postop course were quite expected. He slowly, but surely recovered his strength each and every day. He is now eating a regular diet. His abdomen is moderately protuberant at baseline. However, it is soft, nontender. Incisions are healing well without any local signs or symptoms of infection. He has a little ecchymoses around his midline incision. He is passing lots of flatus, but yet to have a bowel movement. We kept him on Rocephin and Flagyl until yesterday, and we switched him over to Levaquin and Flagyl. At this point, he is doing well and he is ready go home about 17 miles outside of town. His and son are here today. DISCHARGE PLANS AND MEDICATIONS: Donavan is going to be discharged to home without any narcotics. He has been using Tylenol, ibuprofen in the last couple of days. We noticed his blood pressure was Electronically Signed By: ALEX BRANDON MD 01/04/23 0721 PATIENT NAME: DONAVAN REID DISCHARGE SUMMARY DATE OF : 40 REPORT #: [id number] PHYSICIAN: ALEX BRANDON MD PCP: SRIRAM PARKER PAC REPORT IS CONFIDENTIAL AND NOT TO BE RELEASED WITHOUT AUTHORIZATION [facility] [address] [place], [place] [address] Signed running quite high with systolics in the 180s to 200. He has been using Zestoretic, but stopped his other blood pressure pills. We added back amlodipine at 5 mg one p.o. daily and that is really help. In the meantime, we had used a clonidine patch. He was worried about constipation and the family is very familiar with MiraLAX and Colace, which they can purchase at any store. He can also use Tylenol, ibuprofen, and Aleve as needed for pain. He is going to resume all his chronic medications including the Zestoretic, atorvastatin, and fluticasone. I have asked him to continue a regular diet at home. He can shower and bathe and walk up and down stairs as needed. He should not do any heavy pushing, pulling, or lifting over about 20 pounds. We are going to have him back in the office in about one week for followup. We are going to leave all his harlan in place until office followup. Cuco, his and his son have all expressed understanding and agreed with above plan. Alex Brandon MD ALB/MODL /[id number] cc: KENDRA Avalos MD Patient Chart Copies: SRIRAM PARKER ANDREW L MD ~ Electronically Signed By: ALEX BRANDON MD 01/04/23 0721 PATIENT NAME: DONAVAN REID DISCHARGE SUMMARY DATE OF : 40 REPORT #: [id number] PHYSICIAN: ALEX BRANDON MD PCP: SRIRAM PARKER REPORT IS CONFIDENTIAL AND NOT TO BE RELEASED WITHOUT AUTHORIZATION
== END 2023-01-03 10:50 | disposition home or self-care (01) | DRG 342 ==
LOC: ED 07:40 → MS 07:42 → DSVR 12-30 15:19 → MS 12-30 16:55
PROVIDERS: Emergency Medicine; ADMIT Colon & Rectal Surgery; ATTEND Colon & Rectal Surgery
PROC: 0DTJ0ZZ Resection of Appendix, Open Approach (ICD-10-PCS; principal; 2022-12-29 12:00)
PROC: 0WJG4ZZ Inspection of Peritoneal Cavity, Percutaneous Endoscopic Approach (ICD-10-PCS; 2022-12-29 12:00)
DX: K35.31 Acute appendicitis with localized peritonitis and gangrene, without perforation (principal); K56.7 Ileus, unspecified; K91.89 Other postprocedural complications and disorders of digestive system; I10 Essential (primary) hypertension; E78.5 Hyperlipidemia, unspecified; M19.90 Unspecified osteoarthritis, unspecified site; K59.00 Constipation, unspecified; E66.9 Obesity, unspecified; Z20.822 Contact with and (suspected) exposure to COVID-19; Z87.891 Personal history of nicotine dependence; Z98.890 Other specified postprocedural states; Z79.2 Long term (current) use of antibiotics; Z79.899 Other long term (current) drug therapy; Z68.30 Body mass index [BMI] 30.0-30.9, adult; Z90.49 Acquired absence of other specified parts of digestive tract
CPT/HCPCS: 00840; 36415; 74177; 76942; 80048; 80053; 81001; 83735; 84100; 85025; 88304; 93005; 93010; 94762; 96375; 99285-25; A9270; C9113; C9803; J0131; J0330; J0360; J0696; J1100; J1650; J1940; J2371; J2405; J2704; J2795; J3010; J3475; J7030; J7121; Q9967; U0002

== ENCOUNTER 2023-01-13 09:19 | Emergency (ER) | payer MEDICARE ==
[~2023-01-13] VITALS: Ht 175.3 cm; Wt 89.4 kg
--- OUTSIDE RECORDS SUMMARY | ~2023-01-13 | XMS | Continuity of Care Document ---
Demographics + + + | Address | [address] | | | [place] [address] | + + + | Preferred Language | Unknown | + + + | Marital Status | | + + + | Buddhism Affiliation | Unknown | + + + | Race | Unknown | + + + | Ethnic Group | Not or | + + + Author + + + | Author | [facility] | + + + | Organization | [facility] | + + + | Address | [address] | | | [place], [place] [address] | + + + | Phone | | + + + Care Team Providers + + + + | Care Gas Appliance Servicer Name | Role | Phone | + + + + Unavailable | Unavailable | + + + + Allergies No information. Encounters No information. Functional Status No information. Immunizations No information. Medications No information. Problems + + + + | date | description | facility | + + + + | 2022-12-29 10:06 | OBESITY, UNSPECIFIED | [facility] | + + + + | 2022-12-29 10:06 | HYPERLIPIDEMIA, | [facility] | | | UNSPECIFIED | | + + + + | 2022-12-29 10:06 | Essential (primary) | [facility] | | | hypertension | | + + + + | 2022-12-29 10:06 | ACUTE APPENDICITIS WITH | [facility] | | | LOC PERITONITIS AND GANGR, | | + + + + | 2022-12-29 10:06 | UNSPECIFIED ACUTE | [facility] | | | APPENDICITIS | | + + + + | 2022-12-29 10:06 | ILEUS, UNSPECIFIED | [facility] | + + + + | 2022-12-29 10:06 | CONSTIPATION, UNSPECIFIED | [facility] | + + + + | 2022-12-29 10:06 | OTH POSTPROCEDURAL | [facility] | | | COMPLICATIONS AND DISORDERS | | | | OF | | + + + + | 2022-12-29 10:06 | UNSPECIFIED | [facility] | | | OSTEOARTHRITIS, UNSPECIFIED | | | | SITE | | + + + + | 2022-12-29 10:06 | BODY MASS INDEX [BMI] | [facility] | | | 30.0-30.9, ADULT | | + + + + | 2022-12-29 10:06 | MANAGER R D (CURRENT) USE OF | [facility] | | | ANTIBIOTICS | | + + + + | 2022-12-29 10:06 | OTHER MANAGER R D (CURRENT) | [facility] | | | DRUG THERAPY | | + + + + | 2022-12-29 10:06 | PERSONAL HISTORY OF | [facility] | | | NICOTINE DEPENDENCE | | + + + + | 2022-12-29 10:06 | ACQUIRED ABSENCE OF OTHER | [facility] | | | SPECIFIED PARTS OF DIGES | | + + + + | 2022-12-29 10:06 | OTHER SPECIFIED | [facility] | | | POSTPROCEDURAL STATES | | + + + + Procedures No information. Results/Labs No information. Social History +--------+ + + | date | description | facility | +--------+ + + Vital Signs No information."
--- OUTSIDE RECORDS SUMMARY | ~2023-01-13 | XMS | Continuity of Care Document ---
Demographics + + + | Address | [address] | | | [place] [address] | + + + | Preferred Language | Unknown | + + + | Marital Status | | + + + | Anabaptist Affiliation | Unknown | + + + | Race | Unknown | + + + | Ethnic Group | Not or | + + + Author + + + | Author | [facility] | + + + | Organization | [facility] | + + + | Address | [address] | | | [place], [place] [address] | + + + | Phone | | + + + Care Team Providers + + + + | Care Meter Maker Name | Role | Phone | + [...] + + + | 2022-12-29 10:06 | SENIOR PRODUCTION PLANNER (CURRENT) USE OF | [facility] | | | ANTIBIOTICS | | + + + + | 2022-12-29 10:06 | OTHER SENIOR PRODUCTION PLANNER (CURRENT) | [facility] | | | DRUG [...]
[~2023-01-13 09:19] MED LIST changes: +ADULT LOW DOSE81 MG PO; +DICLOFENAC POTA50 MG PO; +FLUTICASONE PRO16 GM NAS; +LISINOPRIL-HCT1 EAC1 PO; +MULTI VITAMIN1 EACH PO; +NORVASC5 MG PO; +SIMVASTATIN40 MG PO
--- OUTSIDE RECORDS SUMMARY | 2023-01-13 09:28 | XMS ---
PreManage Notification: DONAVAN REID Security Manager Web Application Events No recent Security Events currently on file CRITERIA MET - [facility] - 2 Visits in 30 Days CARE PROVIDERS There are no care providers on record at this time. Boaz has no Care Guidelines for this patient. [facility] (12 MO.) [facility] [place] [facility] NOTE: Visits indicate total known visits. ED/UCC VISIT TRACKING (12 MO.) 01/13/2023 09:21 [facility] COMPLAINT: - DIARRHEA, POST SURGERY 12/29/2022 07:41 [facility] TYPE: Emergency COMPLAINT: - LOWER ABD PAIN, FEVER, NAUSEA, SHAKY, HOT/COLD INPATIENT VISIT TRACKING (12 MO.) 12/29/2022 10:06 [facility] [place] TYPE: Medical Surgical COMPLAINT: - ACUTE APPENDICITIS DIAGNOSES: - Acquired absence of other specified parts of digestive tract - Acquired absence of other specified parts of digestive tract - Acute appendicitis with localized peritonitis and gangrene, without perforation - Acute appendicitis with localized peritonitis and gangrene, without perforation - Body mass index [BMI] 30.0-30.9, adult - Body mass index [BMI] 30.0-30.9, adult - Constipation, unspecified - Constipation, unspecified - Contact with and (suspected) exposure to COVID-19 - Contact with and (suspected) exposure to COVID-19 - Essential (primary) hypertension - Essential (primary) hypertension - Hyperlipidemia, unspecified - Hyperlipidemia, unspecified - Ileus, unspecified - Ileus, unspecified - 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 - 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 - Obesity, unspecified - Obesity, unspecified - Other stiff leg operator (current) drug therapy - Other skilled nursing (current) drug therapy - Other postprocedural complications and disorders of digestive system - Other postprocedural complications and disorders of digestive system - Other specified postprocedural states - Other specified postprocedural states - Personal history of nicotine dependence - Personal history of nicotine dependence - Unspecified acute appendicitis - Unspecified osteoarthritis, unspecified site - Unspecified osteoarthritis, unspecified site [email or web address]
[2023-01-13 09:47] LABS: BASOPHILS 0.2 % (0-2); HEMATOCRIT 45.3 % (35.0-50.0); MCV 90.3 fl (81-99)
[2023-01-13 09:51] LABS: HEMOGLOBIN 14.8 g/dL (12.0-18.0); LYMPHOCYTES 12.6 % (24-44); MCH 29.5 (27-36); MCHC 32.7 g/dl (30-36); NEUTROPHILS 78.2 % (39-80); PLATELET COUNT 460 K/uL (140-440); RBC 5.01 M/ul (4.3-5.7)
[2023-01-13 10:09] LABS: ALBUMIN 3.4 g/dL (3.4-5.0); ALBUMIN/GLOBULIN RATIO 0.72 (1.1-2.4); ANION GAP 15.4 (7-21); BILIRUBIN, TOTAL 0.4 ng/dL (0.2-1.0); BUN/CREATININE RATIO 25.58 (6.0-28.6); CALCIUM 9.6 mg/dL (8.5-10.1); CREATININE, SERUM 1.29 mg/dL (0.70-1.30); POTASSIUM 3.4 mmol/L (3.5-5.1); PROTEIN, TOTAL 8.1 g/dL (6.4-8.2)
[2023-01-13] MEDS ORDERED: ONDANSETRON ODT8 MG PO (11:16)
[2023-01-13 11:40] VITALS: BP 99/77
== END 2023-01-13 11:41 | disposition home or self-care (01) ==
LOC: ED 09:19
PROVIDERS: Emergency Medicine
DX: R19.7 Diarrhea, unspecified (principal); I10 Essential (primary) hypertension; E78.5 Hyperlipidemia, unspecified; Z79.899 Other long term (current) drug therapy; Z79.82 Long term (current) use of aspirin; Z87.891 Personal history of nicotine dependence
CPT/HCPCS: 36415; 80053; 85025; 96360; 96361; 99284-25; J7040

== ENCOUNTER 2023-05-17 10:02 | Emergency (ER) | payer MEDICARE ==
[~2023-05-17] VITALS: Ht 175.3 cm; Wt 0.4 kg
[~2023-05-17 10:02] MED LIST changes: +ONDANSETRON ODT8 MG PO
[2023-05-17] MEDS ORDERED: PREDNISONE20 MG PO (14:29)
[2023-05-17] MEDS ORDERED: NEURONTIN300 MG PO (14:29)
[2023-05-17 14:42] VITALS: BP 179/102
== END 2023-05-17 14:45 | disposition home or self-care (01) ==
LOC: ED 10:02
DX: M47.22 Other spondylosis with radiculopathy, cervical region (principal); M47.814 Spondylosis without myelopathy or radiculopathy, thoracic region; M50.122 Cervical disc disorder at C5-C6 level with radiculopathy; M50.123 Cervical disc disorder at C6-C7 level with radiculopathy; M50.13 Cervical disc disorder with radiculopathy, cervicothoracic region; I10 Essential (primary) hypertension; E78.5 Hyperlipidemia, unspecified; M19.90 Unspecified osteoarthritis, unspecified site; Z87.891 Personal history of nicotine dependence; Z79.899 Other long term (current) drug therapy; Z79.82 Long term (current) use of aspirin
CPT/HCPCS: 72125; 72128; 99283-25; A9270

== ENCOUNTER 2025-02-03 16:57 | Emergency (ER) | payer MEDICARE ==
[~2025-02-03] VITALS: Ht 175.3 cm; Wt 68.4 kg
[~2025-02-03 16:57] MED LIST changes: +NEURONTIN300 MG PO; +PREDNISONE20 MG PO
[2025-02-03] MEDS ORDERED: NITROGLYCERIN 0.4 MG SUBL SL PRN (17:15)
[2025-02-03] MEDS ORDERED: ASPIRIN 81 MG CHEW PO ONE (17:15)
[2025-02-03 17:34] LABS: BASOPHILS 0.4 % (0.2-1.2); EOSINOPHILS 0.4 % (0.8-7.0); LYMPHOCYTES 14.5 % (21.8-53.1); MCH 29.6 PG (25.7-32.2); MCHC 33.0 g/dL (32.3-36.5); MCV 89.7 fL (79.0-92.2); MONOCYTES 10.5 % (5.3-12.2); NEUTROPHILS 73.9 % (34.0-67.9); RBC 4.29 M/uL (4.63-6.08)
[2025-02-03 17:44] LABS: ALT (SGPT) 438.0 U/L (14-59); AST (SGOT) 105.0 U/L (15-37); GLOMERULAR FILTRATION RATE,EST 67.0 mL/min (>60); PROTEIN, TOTAL 7.3 g/dL (6.4-8.2); UREA NITROGEN 27.0 mg/dL (7-18)
[2025-02-03] MEDS ORDERED: APIXABAN 2.5 MG TAB PO ONE (18:45)
[2025-02-03] MEDS ORDERED: DILTIAZEM 24HR120 MG PO (19:56)
[2025-02-03] MEDS ORDERED: ELIQUIS5 MG PO (19:56)
[2025-02-03] MEDS ORDERED: MAGNESIUM SULFATE 2 GM/50 ML BAG IV ONE (20:00)
[2025-02-03 21:29] VITALS: BP 115/97
--- NOTE | 2025-02-04 12:05 | EKG ---
[facility] [address] [place] [address] Signed Atrial fibrillation with rapid ventricular response with premature ventricular or aberrantly conducted complexes Incomplete right bundle branch block Left anterior fascicular block Moderate voltage criteria for LVH, may be normal variant ( R in aVL , [place] product ) Septal infarct , age undetermined Abnormal ECG When compared with ECG of 29-DEC-2022 09:22, Atrial fibrillation has replaced Sinus rhythm Septal infarct is now present Nonspecific T wave abnormality no longer evident in Inferior leads Inverted T waves have replaced nonspecific T wave abnormality in Lateral leads Confirmed by Bruna Marks DO ([id number]) on 02/04/2025 12:04:53 PM Electronically Signed By: BRUNA MARKS DO 02/04/25 1205 PATIENT NAME: DONAVAN REID Electrocardiogram DATE OF : 40 PHYSICIAN: BRUNA MARKS DO REPORT #: [id number] REPORT IS CONFIDENTIAL AND NOT TO BE RELEASED WITHOUT AUTHORIZATION
== END 2025-02-03 21:26 | disposition home or self-care (01) ==
LOC: ED 16:57
PROVIDERS: Emergency Medicine
DX: I48.91 Unspecified atrial fibrillation (principal); I10 Essential (primary) hypertension; E78.5 Hyperlipidemia, unspecified; Z87.891 Personal history of nicotine dependence; Z79.82 Long term (current) use of aspirin; Z79.899 Other long term (current) drug therapy
CPT/HCPCS: 36415; 71045; 80053; 83735; 84484; 85025; 93005; 93010; 96374; 96375; 99285-25; A9270; J3475